=== PATIENT | male | born 1985 | race Caucasian/White ===

== ENCOUNTER 2024-05-03 17:10 | Emergency (ER) | payer MEDICAID, OTHER ==
[~2024-05-03] VITALS: Ht 177.8 cm; Wt 91.0 kg
[2024-05-03 17:32] VITALS: BP 135/81; PULSE 100; RESP 16; TEMP 98.3; O2SAT 100
== END 2024-05-03 19:50 | disposition left against medical advice (07) ==
LOC: ER 17:10
DX: Z76.0 Encounter for issue of repeat prescription (principal); Z90.49 Acquired absence of other specified parts of digestive tract; Z53.21 Procedure and treatment not carried out due to patient leaving prior to being seen by health care provider